=== PATIENT | male | born 1965 | race Caucasian/White ===

== ENCOUNTER 2020-12-19 04:01 | Emergency (ER) | payer MEDICARE ==
[~2020-12-19] VITALS: Ht 177.8 cm; Wt 104.3 kg
[~2020-12-19 04:01] MED LIST: AMOCLA875 PO; CIPR500 PO; CLIN100S PO; CLIN300 PO; HARVONI 90-4001 EACH PO; NAPR500 PO; OXYACE5T PO; OXYACE7.5T PO; Percocet 5-3251 EACH PO; RXOXYACE PO; TRAM50 PO; Zofran4 MG PO
== END 2020-12-19 04:36 | disposition left against medical advice (07) ==
LOC: ER 04:01
DX: Z53.21 Procedure and treatment not carried out due to patient leaving prior to being seen by health care provider (principal)